=== PATIENT | female | born 1960 | race Caucasian/White ===

== ENCOUNTER 2017-02-21 08:00 | Outpatient (CLI) | payer OTHER | END 2017-02-21 08:01 | disposition home or self-care (01) | LOC: BICMAMMO 08:00 | PROVIDERS: ATTEND Obstetrics & Gynecology | DX: Z12.31 Encounter for screening mammogram for malignant neoplasm of breast (principal) | CPT/HCPCS: 77063 ==

== ENCOUNTER 2018-04-27 15:06 | Outpatient (CLI) | payer OTHER | END 2018-04-27 15:07 | disposition home or self-care (01) | LOC: BICMAMMO 15:06 | PROVIDERS: ATTEND Obstetrics & Gynecology | DX: Z12.31 Encounter for screening mammogram for malignant neoplasm of breast (principal); N63.10 Unspecified lump in the right breast, unspecified quadrant; Z80.3 Family history of malignant neoplasm of breast | CPT/HCPCS: 77063; 77067 ==

== ENCOUNTER 2018-05-08 13:35 | Outpatient (CLI) | payer OTHER ==
--- NOTE | 2018-05-08 14:29 | ULT ---
RIGHT BREAST ULTRASOUND: Comparison: Mammogram, 04-27-18 History: Well circumscribed mass seen in the central subareolar breast on screening mammography. Technique: Multiplanar grayscale and color doppler images were obtained in a right breast ultrasound. FINDINGS: There is an anechoic well circumscribed cyst in the retroareolar region of the right breast. This tiffanie sures 5 mm in greatest dimension and corresponds to the mammographic abnormality. No suspicious shado wing or solid mass are seen. IMPRESSION: BIRADS category 2 - benign findings. Annual screening mammography is recommended. POS: SUNSHINE
== END 2018-05-08 13:36 | disposition home or self-care (01) ==
LOC: BICULT 13:35
PROVIDERS: ATTEND Obstetrics & Gynecology
DX: N63.10 Unspecified lump in the right breast, unspecified quadrant (principal)

== ENCOUNTER 2022-06-16 14:58 | Outpatient (CLI) | payer BC | END 2022-06-16 14:59 | disposition home or self-care (01) | LOC: BICMAMMO 14:58 | PROVIDERS: ATTEND Nurse Practitioner | DX: Z12.31 Encounter for screening mammogram for malignant neoplasm of breast (principal) | CPT/HCPCS: 77063; 77067 ==

== ENCOUNTER 2023-05-02 13:13 | Outpatient (CLI) | payer BC | END 2023-05-02 13:14 | disposition home or self-care (01) | LOC: BICRAD 13:13 | PROVIDERS: ATTEND Internal Medicine Rheumatology | DX: M17.0 Bilateral primary osteoarthritis of knee (principal) | CPT/HCPCS: 73565 ==

== ENCOUNTER 2024-04-05 10:49 | Outpatient (CLI) | payer BC | END 2024-04-05 10:50 | disposition home or self-care (01) | LOC: BICMAMMO 10:49 | PROVIDERS: ATTEND Internal Medicine Rheumatology | DX: M81.0 Age-related osteoporosis without current pathological fracture (principal); M85.89 Other specified disorders of bone density and structure, multiple sites | CPT/HCPCS: 77080 ==